=== PATIENT | male | born 1995 | race African-American/Black ===

== ENCOUNTER 2019-07-03 22:14 | Emergency (ER) | payer OTHER ==
[~2019-07-03] VITALS: Ht 182.9 cm; Wt 104.3 kg
[2019-07-03 23:03] LABS: URINE BILIRUBIN NEGATIVE (Negative); URINE BLOOD NEGATIVE (Negative); URINE CLARITY CLEAR; URINE COLOR YELLOW; URINE GLUCOSE-RANDOM NEGATIVE (Negative); URINE KETONES NEGATIVE (Negative); URINE LEUKOCYTES-REFLEX NEGATIVE (Negative); URINE NITRITE-REFLEX NEGATIVE (Negative); URINE PROTEIN NEGATIVE (Negative); URINE SPECIFIC GRAVITY 1.015 (1.005-1.030); URINE UROBILINOGEN 0.2 E.U./dl (0.2-1.0)
[2019-07-03] MEDS ORDERED: BENTYL 20 MG TA20 M1 PO (23:45)
[2019-07-04 00:04] VITALS: BP 148/98
--- NOTE | 2019-07-04 10:16 | EKG ---
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
== END 2019-07-04 00:16 | disposition home or self-care (01) ==
LOC: M.ERS 22:14
PROVIDERS: Emergency Medicine
DX: R10.33 Periumbilical pain (principal)

== ENCOUNTER 2020-09-20 23:12 | Emergency (ER) | payer OTHER ==
[~2020-09-20] VITALS: Ht 182.9 cm; Wt 104.3 kg
[~2020-09-20 23:12] MED LIST: BENTYL 20 MG TA20 M1 PO
[2020-09-21 00:14] LABS: HEMATOCRIT 46.5 % (42.0-52.0); HEMOGLOBIN 15.1 gm/dL (14.0-18.0); MCH 28.2 pg (26.0-34.0); MCHC 32.4 g/dL (28.0-37.0); MCV 86.9 fL (80.0-100.0); MPV 9.9 fl. (7.2-11.1); RBC 5.35 mil/uL (4.50-6.00); RDW-CV 13.7 % (10.5-14.5); WBC 6.8 thou/uL (4.0-11.0)
[2020-09-21 00:38] LABS: CALCIUM 9.3 mg/dL (8.5-10.1); CREATININE 1.3 mg/dL (0.6-1.3); POTASSIUM 3.5 mmol/L (3.5-5.1)
[2020-09-21 00:43] LABS: ALBUMIN 4.6 g/dL (3.4-5.0); TOTAL BILIRUBIN 0.6 mg/dL (<0.1-1.0); TOTAL PROTEIN 8.6 g/dL (6.4-8.2)
[2020-09-21] MEDS ORDERED: NORFLEX100 MG PO (01:23)
[2020-09-21] MEDS ORDERED: PREDNISONE 20 M20 MG PO (01:23)
[2020-09-21 01:50] VITALS: BP 138/65
== END 2020-09-21 01:50 | disposition home or self-care (01) ==
LOC: M.ERS 23:12
PROVIDERS: Personal Emergency Response Attendant
DX: S13.9XXA Sprain of joints and ligaments of unspecified parts of neck, initial encounter (principal); S39.012A Strain of muscle, fascia and tendon of lower back, initial encounter; M79.662 Pain in left lower leg; F41.9 Anxiety disorder, unspecified; V43.53XA Car driver injured in collision with pick-up truck in traffic accident, initial encounter; Y93.I9 Activity, other involving external motion; Y92.488 Other paved roadways as the place of occurrence of the external cause; Y99.8 Other external cause status